=== PATIENT | female | born 1990 | race Caucasian/White ===

== ENCOUNTER 2017-01-02 00:30 | Emergency (ER) | payer OTHER ==
--- NOTE | 2017-01-02 01:51 | ED NURSING NOTES ---
Clinical Report - Nurses [facility] [address] [place] [address] 01/02/2017 0:33 Patient: MARIBELL DE TRIAGE Triage time 00:42. Acuity: LEVEL 4. --00:50 Shankar Prasad R.N. 00:40 01/02/17. BP: 103/74. HR: 133. RR: 18. O2 saturation: 100%. Temp: 98.4 F. --00:50 Shankar Prasad R.N. Chief Complaint: (ANN MARIE drainage check). --02:04 Shankar Prasad R.N. Weight: 77.5 kg stated. Height/Length: 64 inches Per Patient. BMI: 29.3. --00:49 Shankar Prasad R.N. Medications None. --00:48 Shankar Prasad R.N. Medication/allergy information source: the patient. --00:50 Shankar Prasad R.N. Allergies Latex. --00:48 Shankar Prasad R.N. Toradol. --00:48 Shankar Prasad R.N. History Arrived by private vehicle. Historian: patient. Unaccompanied. ( Pt had a ruptured gallbladder and had sx at [facility]. Pt had two sx due to the development of an abscess. Pt was discharged yesterday. Pt was prescribed antibiotics, but has not been able to get the script filled. Pt came in with a ANN MARIE drainage with pain around the surgical site. Pt is having tenderness on the lower right abdomen.). Treatment INSTRUCTOR ROBOTICS: None. PAST MEDICAL HX: Denies current . SOCIAL HX: Current every day heavy tobacco smoker (cigarette)- less than 1 pack per day. History of heavy drug use: methamphetamines, marijuana. Recently used drugs today. No alcohol use. --00:50 Shankar Prasad R.N. PROBLEMS: Mental Illness. Depression. --00:49 Shankar Prasad R.N. ADDITIONAL SURGERIES: Gallbladder Surgery. Tonsillectomy & Adenoidectomy. --00:49 Osmar, Shankar, R.N. Interventions ID band on patient. To waiting room. --00:50 Shankar Prasad R.N. DISPOSITION / DISCHARGE Departure time: 02:03. Condition at departure: improved. ( Pt will follow up with surgeon if the pain gets worse. Pt stated she will get her mother to take her to [facility] if need be.). No learning barriers present. Discharge instructions provided and reviewed with the patient. Reviewed medication(s) side effects, precautions, dosing and course information. Prescription(s) given to the patient (augmentin). The patient was discharged home and accompanied by parent. She left the Emergency Department ambulatory and via private vehicle. Parent driving. KEVIN COMA SCORE: Kevin Coma Scale: 15- eyes open spontaneously (4); best verbal response- oriented x 4 (5); best motor response- obeys commands (6). --02:04 Shankar Prasad R.N. 02:01 01/02/17. BP: 113/83. HR: 111. RR: 16. O2 saturation: 100%. Pain level now 11/15. --02:04 Shankar Prasad R.N. Locked/Released at 01/02/2017 2:04 by Shankar Prasad R.N.
--- NOTE | 2017-01-02 01:51 | ED NURSING NOTES ---
Clinical Report - Nurses [facility] [address] [place] [address] 01/02/2017 0:33 Patient: MARIBELL DE TRIAGE Triage time 00:42. Acuity: LEVEL 4. --00:50 Shankar Prasad R.N. 00:40 01/02/17. BP: 103/74. HR: 133. RR: 18. O2 saturation: 100%. Temp: 98.4 F. --00:50 Shankar Prasad R.N. Chief Complaint: (ANN MARIE drainage check). --02:04 Shankar Prasad R.N. Weight: 77.5 kg stated. Height/Length: 64 inches Per Patient. BMI: 29.3. --00:49 Shankar Prasad R.N. Medications None. --00:48 Shankar Prasad R.N. Medication/allergy information source: the patient. --00:50 Shankar Prasad R.N. Allergies Latex. --00:48 Shankar Prasad R.N. Toradol. --00:48 Shankar Prasad R.N. History Arrived by private vehicle. Historian: patient. Unaccompanied. ( Pt had a ruptured gallbladder and had sx at [facility]. Pt had two sx due to the development of an abscess. Pt was discharged yesterday. Pt was prescribed antibiotics, but has not been able to get the script filled. Pt came in with a ANN MARIE drainage with pain around the surgical site. Pt is having tenderness on the lower right abdomen.). Treatment HUMAN RESOURCES OPERATIONS DIRECTOR: None. PAST MEDICAL HX: Denies current . SOCIAL HX: Current every day heavy tobacco smoker (cigarette)- less than 1 pack per day. History of heavy drug use: methamphetamines, marijuana. Recently used drugs today. No alcohol use. --00:50 Shankar Prasad R.N. PROBLEMS: Mental Illness. Depression. --00:49 Shankar Prasad R.N. ADDITIONAL SURGERIES: Gallbladder Surgery. Tonsillectomy & Adenoidectomy. --00:49 Osmar, Shankar, R.N. Interventions ID band on patient. To waiting room. --00:50 Shankar Prasad R.N. DISPOSITION / DISCHARGE Departure time: 02:03. Condition at departure: improved. ( Pt will follow up with surgeon if the pain gets worse. Pt stated she will get her mother to take her to [facility] if need be.). No learning barriers present. Discharge instructions provided and reviewed with the patient. Reviewed medication(s) side effects, precautions, dosing and course information. Prescription(s) given to the patient (augmentin). The patient was discharged home and accompanied by parent. She left the Emergency Department ambulatory and via private vehicle. Parent driving. KEVIN COMA SCORE: Kevin Coma Scale: 15- eyes open spontaneously (4); best verbal response- oriented x 4 (5); best motor response- obeys commands (6). --02:04 Shankar Prasad R.N. 02:01 01/02/17. BP: 113/83. HR: 111. RR: 16. O2 saturation: 100%. Pain level now 11/15. --02:04 Shankar Prasad R.N. Locked/Released at 01/02/2017 2:04 by Shankar Prasad R.N.
--- NOTE | 2017-01-02 01:51 | ED CLINICAL REPORT ---
Clinical Report - Physicians/Mid Levels [facility] [address] [place] [address] 01/02/2017 0:33 Patient: MARIBELL DE Time Seen: 00:57; initial patient contact. Arrived- By private vehicle. Historian- patient. HISTORY OF PRESENT ILLNESS Chief Complaint: ( Pain in ANN MARIE drain incision). At its maximum, severity described as mild. When seen in the E.D., severity described as mild. Modifying factors. Not worsened by anything. Not relieved by anything. This started yesterday and is still present. It was gradual in onset. No current or associated symptoms. Similar symptoms previously: None. Recent medical care: The patient was seen recently and hospitalized. ( Pt had intraperitoneal infection from [facility]. D/C yesterday, does not have access to her Abx.). REVIEW OF SYSTEMS No fever, nausea, vomiting, diarrhea or chills. She has had abdominal pain (incisional). All systems otherwise negative, except as recorded above. PAST HISTORY Mental Illness. Depression. ADDITIONAL SURGERIES: Gallbladder Surgery. Tonsillectomy & Adenoidectomy. SOCIAL HISTORY Current every day smoker. History of drug use: methamphetamines, marijuana. Recently used drugs just prior to arrival. Under influence in ED. No alcohol use. ADDITIONAL NOTES The nursing notes have been reviewed. PHYSICAL EXAM Vital Signs: 01/02/2017 00:40 BP: 103/74. HR: 133. RR: 18. O2 saturation: 100%. Temp: 98.4 F. Have been reviewed. Blood pressure normal. Tachycardic. Respiratory rate normal. Temperature normal. Oxygen saturation normal. Appearance: Alert. No acute distress. Eyes: Eyes normal inspection. No scleral icterus. ENT: Pharynx normal. CVS: Tachycardia. Heart sounds normal. Rhythm normal. Respiratory: No respiratory distress. Breath sounds normal. Abdomen: Soft. Mild tenderness (At ANN MARIE drain site.). Bowel sounds normal. No organomegaly. No mass. (rest of abd non-tender. Serosanguinous drainage in ANN MARIE drain.). Skin: Skin warm and dry. Normal skin color. Neuro: Oriented X 3. PROGRESS AND PROCEDURES Disposition: Discharged home in good condition. Condition: good. CLINICAL IMPRESSION Acute left lower quadrant abdominal pain. (Incisional). INSTRUCTIONS Your Current Medications: CONTINUE TAKING THE FOLLOWING MEDICATIONS: None*. Prescription Medications: Augmentin 875 mg: take 1 tablet orally every 12 hours for 7 days. No refill. Substitution is permissible. Follow-up: Follow up with your doctor in about one day. Call for an appointment. (Electronically signed by Akira Mehta Dr. 01/02/2017 1:55)
--- NOTE | 2017-01-02 01:51 | ED CLINICAL REPORT ---
Clinical Report - Physicians/Mid Levels [facility] [address] [place] [address] 01/02/2017 0:33 Patient: MARIBELL DE Time Seen: 00:57; initial patient contact. Arrived- By private vehicle. Historian- patient. HISTORY OF PRESENT ILLNESS Chief Complaint: ( Pain in ANN MARIE drain incision). At its maximum, severity described as mild. When seen in the E.D., severity described as mild. Modifying factors. Not worsened by anything. Not relieved by anything. This started yesterday and is still present. It was gradual in onset. No current or associated symptoms. Similar symptoms previously: None. Recent medical care: The patient was seen recently and hospitalized. ( Pt had intraperitoneal infection from [place]. D/C yesterday, does not have access to her Abx.). REVIEW OF SYSTEMS No fever, nausea, vomiting, diarrhea or chills. She has had abdominal pain (incisional). All systems otherwise negative, except as recorded above. PAST HISTORY Mental Illness. Depression. ADDITIONAL SURGERIES: Gallbladder Surgery. Tonsillectomy & Adenoidectomy. SOCIAL HISTORY Current every day smoker. History of drug use: methamphetamines, marijuana. Recently used drugs just prior to arrival. Under influence in ED. No alcohol use. ADDITIONAL NOTES The nursing notes have been reviewed. PHYSICAL EXAM Vital Signs: 01/02/2017 00:40 BP: 103/74. HR: 133. RR: 18. O2 saturation: 100%. Temp: 98.4 F. Have been reviewed. Blood pressure normal. Tachycardic. Respiratory rate normal. Temperature normal. Oxygen saturation normal. Appearance: Alert. No acute distress. Eyes: Eyes normal inspection. No scleral icterus. ENT: Pharynx normal. CVS: Tachycardia. Heart sounds normal. Rhythm normal. Respiratory: No respiratory distress. Breath sounds normal. Abdomen: Soft. Mild tenderness (At ANN MARIE drain site.). Bowel sounds normal. No organomegaly. No mass. (rest of abd non-tender. Serosanguinous drainage in ANN MARIE drain.). Skin: Skin warm and dry. Normal skin color. Neuro: Oriented X 3. PROGRESS AND PROCEDURES Disposition: Discharged home in good condition. Condition: good. CLINICAL IMPRESSION Acute left lower quadrant abdominal pain. (Incisional). INSTRUCTIONS Your Current Medications: CONTINUE TAKING THE FOLLOWING MEDICATIONS: None*. Prescription Medications: Augmentin 875 mg: take 1 tablet orally every 12 hours for 7 days. No refill. Substitution is permissible. Follow-up: Follow up with your doctor in about one day. Call for an appointment. (Electronically signed by Akira Mehta Dr. 01/02/2017 1:55)
--- NOTE | 2017-01-02 02:04 | ED MAR SUMMARY ---
..... Medication Administration Record [facility] [address], [place] [id number] Patient: MARIBELL DE Visit ID: [id number] 26y, F Weight: 77.5 kg Height/Length: 64 in BMI: 29.3 ALLERGIES: Toradol, Latex
--- NOTE | 2017-01-02 02:04 | ED MED RECONCILIATION SUMMARY ---
Patient: MARIBELL DE Medication Reconciliation Report [facility] VisitID: [id number] [address] [place] [address] 26y, F Registration Date/Time: 01/02/2017 Weight: 77.5 kg Height/Length: 64 in. BMI: 29.3 ALLERGIES: Latex, Toradol The patient's Home Medications are listed below: NONE. The source(s) of the original Home Medication information: patient The following Medications were given to the patient in the Emergency Department: None. The following Medications were prescribed to the patient: Augmentin 875 mg: take 1 tablet orally every 12 hours for 7 days. No refill. Substitution is permissible. -- Akira Mehta Dr.
--- NOTE | 2017-01-02 02:04 | ED DISCHARGE INSTRUCTIONS ---
Patient: MARIBELL DE General Instructions [facility] VisitID: [id number] [place] [address] 26y, F Registration Date/Time: 01/02/2017 Acute left lower quadrant abdominal pain. (Incisional). INSTRUCTIONS Your Current Medications: CONTINUE TAKING THE FOLLOWING MEDICATIONS: None*. Prescription Medications: Augmentin 875 mg: take 1 tablet orally every 12 hours for 7 days. No refill. Substitution is permissible. Follow-up: Follow up with your doctor in about one day. Call for an appointment. ADDITIONAL INFORMATION Amoxicillin Trihydrate, Clavulanate Potassium Oral tablet What is this medicine? AMOXICILLIN; CLAVULANIC ACID (a mox i WHIT in; KRISHNA manrique ic id) is a penicillin antibiotic. It is used to treat certain kinds of bacterial infections. It will not work for colds, flu, or other viral infections. How should I use this medicine? Take this medicine by mouth with a full glass of water. Follow the directions on the prescription label. Take at the start of a meal. Do not crush or chew. If the tablet has a score line, you may cut it in half at the score line for easier swallowing. Take your medicine at regular intervals. Do not take your medicine more often than directed. Take all of your medicine as directed even if you think you are better. Do not skip doses or stop your medicine early. Talk to your pediatric immunologist regarding the use of this medicine in children. Special care may be needed. What side effects may I notice from receiving this medicine? Side effects that you should report to your doctor or health managed care specialist as soon as possible: allergic reactions like skin rash, itching or hives, swelling of the face, lips, or tongue breathing problems dark urine fever or chills, sore throat redness, blistering, peeling or loosening of the skin, including inside the mouth seizures trouble passing urine or change in the amount of urine unusual bleeding, bruising unusually weak or tired white patches or sores in the mouth or throat Side effects that usually do not require medical attention (report to your doctor or health managed care specialist if they continue or are bothersome): diarrhea dizziness headache nausea, vomiting stomach upset vaginal or anal irritation What may interact with this medicine? allopurinol anticoagulants control pills methotrexate probenecid What if I miss a dose? If you miss a dose, take it as soon as you can. If it is almost time for your next dose, take only that dose. Do not take double or extra doses. Where should I keep my medicine? Keep out of the reach of children. Store at room temperature below 25 degrees C (77 degrees F). Keep container tightly closed. Throw away any unused medicine after the expiration date. What should I tell my health care provider before I take this medicine? They need to know if you have any of these conditions: bowel disease, like colitis kidney disease liver disease mononucleosis an unusual or allergic reaction to amoxicillin, penicillin, cephalosporin, other antibiotics, clavulanic acid, other medicines, foods, dyes, or preservatives or trying to get breast-feeding What should I watch for while using this medicine? Tell your doctor or health managed care specialist if your symptoms do not improve. Do not treat diarrhea with over the counter products. Contact your doctor if you have diarrhea that lasts more than 2 days or if it is severe and watery. If you have diabetes, you may get a false-positive result for sugar in your urine. Check with your doctor or health managed care specialist. control pills may not work properly while you are taking this medicine. Talk to your doctor about using an extra method of control. You have been given the following additional information: Amoxicillin Trihydrate, Clavulanate Potassium Oral tablet (Electronically signed by Akira Mehta Dr. 01/02/2017 1:55)
--- NOTE | 2017-01-02 02:04 | ED DISCHARGE INSTRUCTIONS ---
Patient: MARIBELL DE General Instructions [facility] VisitID: [id number] [place] [address] 26y, F Registration Date/Time: 01/02/2017 Acute left lower quadrant abdominal pain. (Incisional). INSTRUCTIONS Your Current Medications: CONTINUE TAKING THE FOLLOWING MEDICATIONS: None*. Prescription Medications: Augmentin 875 mg: take 1 tablet orally every 12 hours for 7 days. No refill. Substitution is permissible. Follow-up: Follow up with your doctor in about one day. Call for an appointment. ADDITIONAL INFORMATION Amoxicillin Trihydrate, Clavulanate Potassium Oral tablet What is this medicine? AMOXICILLIN; CLAVULANIC ACID (a mox i WHIT in; KRISHNA manrique ic id) is a penicillin antibiotic. It is used to treat certain kinds of bacterial infections. It will not work for colds, flu, or other viral infections. How should I use this medicine? Take this medicine by mouth with a full glass of water. Follow the directions on the prescription label. Take at the start of a meal. Do not crush or chew. If the tablet has a score line, you may cut it in half at the score line for easier swallowing. Take your medicine at regular intervals. Do not take your medicine more often than directed. Take all of your medicine as directed even if you think you are better. Do not skip doses or stop your medicine early. Talk to your event decorator and designer regarding the use of this medicine in children. Special care may be needed. What side effects may I notice from receiving this medicine? Side effects that you should report to your doctor or health child caregiver as soon as possible: allergic reactions like skin rash, itching or hives, swelling of the face, lips, or tongue breathing problems dark urine fever or chills, sore throat redness, blistering, peeling or loosening of the skin, including inside the mouth seizures trouble passing urine or change in the amount of urine unusual bleeding, bruising unusually weak or tired white patches or sores in the mouth or throat Side effects that usually do not require medical attention (report to your doctor or health child caregiver if they continue or are bothersome): diarrhea dizziness headache nausea, vomiting stomach upset vaginal or anal irritation What may interact with this medicine? allopurinol anticoagulants control pills methotrexate probenecid What if I miss a dose? If you miss a dose, take it as soon as you can. If it is almost time for your next dose, take only that dose. Do not take double or extra doses. Where should I keep my medicine? Keep out of the reach of children. Store at room temperature below 25 degrees C (77 degrees F). Keep container tightly closed. Throw away any unused medicine after the expiration date. What should I tell my health care provider before I take this medicine? They need to know if you have any of these conditions: bowel disease, like colitis kidney disease liver disease mononucleosis an unusual or allergic reaction to amoxicillin, penicillin, cephalosporin, other antibiotics, clavulanic acid, other medicines, foods, dyes, or preservatives or trying to get breast-feeding What should I watch for while using this medicine? Tell your doctor or health child caregiver if your symptoms do not improve. Do not treat diarrhea with over the counter products. Contact your doctor if you have diarrhea that lasts more than 2 days or if it is severe and watery. If you have diabetes, you may get a false-positive result for sugar in your urine. Check with your doctor or health child caregiver. control pills may not work properly while you are taking this medicine. Talk to your doctor about using an extra method of control. You have been given the following additional information: Amoxicillin Trihydrate, Clavulanate Potassium Oral tablet (Electronically signed by Akira Mehta Dr. 01/02/2017 1:55)
--- NOTE | 2017-01-02 02:04 | ED MED RECONCILIATION SUMMARY ---
Patient: MARIBELL DE Medication Reconciliation Report [facility] VisitID: [id number] [address] [place] [address] 26y, F Registration Date/Time: 01/02/2017 Weight: 77.5 kg Height/Length: 64 in. BMI: 29.3 ALLERGIES: Latex, Toradol The patient's Home Medications are listed below: NONE. The source(s) of the original Home Medication information: patient The following Medications were given to the patient in the Emergency Department: None. The following Medications were prescribed to the patient: Augmentin 875 mg: take 1 tablet orally every 12 hours for 7 days. No refill. Substitution is permissible. -- Akira Mehta Dr.
--- NOTE | 2017-01-02 02:04 | ED MAR SUMMARY ---
..... Medication Administration Record [facility] [address] [place], [place] [id number] Patient: MARIBELL DE Visit ID: [id number] 26y, F Weight: 77.5 kg Height/Length: 64 in BMI: 29.3 ALLERGIES: Toradol, Latex
== END 2017-01-02 02:00 | disposition home or self-care (01) ==
LOC: ED SRH 00:30
DX: R10.32 Left lower quadrant pain (principal); G89.18 Other acute postprocedural pain; F17.210 Nicotine dependence, cigarettes, uncomplicated; Z91.040 Latex allergy status; Z88.8 Allergy status to other drugs, medicaments and biological substances